=== PATIENT | female | born 1985 | race Caucasian/White ===

== ENCOUNTER 2025-02-13 18:19 | Emergency (ER) | payer MEDICAID ==
[~2025-02-13] VITALS: Ht 170.2 cm; Wt 77.6 kg
[2025-02-13 19:06] LABS: BILIRUBIN,URINE NEGATIVE (Neg); CLARITY,URINE CLOUDY (Clear); COLOR,URINE YELLOW (Yellow); GLUCOSE, URINE NEGATIVE (Neg); KETONES,URINE NEGATIVE (Neg); LEUKOCYTE ESTERASE ,URINE MODERATE (Neg); NITRITES, URINE NEGATIVE (Neg); OCCULT BLOOD,URINE TRACE-INTACT (Neg); PROTEIN,URINE TRACE mg/dl (Neg); UROBILINOGEN,URINE 0.2 E.U/dL (0.2-1.0)
[2025-02-13 19:07] LABS: URINE HCG NEGATIVE (NEG)
[2025-02-13 19:13] LABS: UA COLLECTION TYPE CLN CATCH MIDSTREAM
[2025-02-13 19:15] LABS: BACTERIA,URINE FEW /HPF (Neg); SQUAMOUS EPITHELIAL CELL,UR NONE SEEN /LPF (FEW); WBC,URINE TNTC /HPF (0-4)
--- NOTE | 2025-02-13 19:26 | Physician Documentation ---
History of Present Illness ~ General Chief Complaint: Multiple Medical Complaints Stated Complaint: UTI/ARMS ARE NUMB-CARPAL TUNNEL Time Seen by MD: 19:05 History of Present Illness Initial Comments This is a 59-year-old female presents with 3-4 days of dysuria and urinary frequency without abdominal pain or fever. Patient reports additionally that she has been having intermittent shooting pain in her hands and wrist pain for the last approximately one month. Patient reports no other acute symptoms or concerns. Medication Reconciliation Allergies: Coded Allergies: No Known Allergies (Unverified , 02/13/25) Scheduled Nitrofurantoin Monohyd/M-Cryst (Macrobid 100 mg Capsule), 1 CAP PO Q12H Past Medical History Past Medical History: No Pertinent History Review of Systems ROS Dysuria and intermittent hand tingling as stated above in the HPI, otherwise all systems are reviewed and negative. Physical Exam Physical Exam Vital Signs: Temperature: 97.9, Source: Oral, Heart Rate: 87, Respiratory Rate: 16, BP: 136/82, Pulse Oximetry: 99, Weight: 77.600 Oxygen Flow Rate: 0 Physical Exam VITALS: Reviewed and as above. GENERAL: Alert, nontoxic appearing, no apparent distress. RESPIRATORY: No increased work of breathing, no respiratory distress, speaking in full clear sentences CV: Regular rate and rhythm no murmur BACK: CVA tenderness GI: Nondistended, soft, nontender to palpation, no rebound, no guarding MUSCULOSKELETAL: Positive Phalen sign bilateral wrists otherwise nontender to palpation Progress Results/Orders Results/Orders Orders - IFTIKHAR EVANS Ortho Orders (02/13/25 ) Completed Orders - IFTIKHAR EVANS Nitrofurantoin Macrocryst Cap (Macrodant (02/13/25 19:30) Medications Received in ER Medications (Trade) Dose Ordered Sig/Grzegorz Route PRN Reason Start Time Stop Time Status Last Admin Dose Admin (MacroDANTIN capsule) 100 mg NOW ONCE PO 02/13/25 19:30 02/13/25 19:34 DC 02/13/25 19:48 100 MG Vital Signs 02/13/25 02/13/25 18:22 19:54 Temp 97.9 98.6 Pulse 87 84 Resp 16 18 B/P (MAP) 136/82 134/80 Pulse Ox 99 99 O2 Flow Rate 0 Laboratory Tests Test 02/13/25 18:27 Urine Specimen Description Cln catch midstream Urine Color Yellow Urine Clarity Cloudy Urine pH 6.0 Urine Specific [place] 1.025 Urine Protein Trace Urine Glucose (UA) Negative Urine Ketones Negative Urine Occult Blood Trace-intact Urine Nitrite Negative Urine Bilirubin Negative Urine Urobilinogen 0.2 Urine Leukocyte Esterase Moderate H Urine RBC 3-10 Urine WBC Tntc H Urine Squamous Epithelial Cells None seen Urine Bacteria Few Urine Culture Indicated Indicated Volume Urine Centrifuged 10 ml Urine HCG, Qualitative Negative Urine Comment Microbiology Date/Time Source Procedure Growth Status 02/13/25 19:16 Urine Clean Catch Midstream Urine Culture - Preliminary Culture received. Resulted Medical Decision Making Findings This 39-year-old male presented with three days of dysuria and urinary frequency without fever or abdominal pain, is reassuring patient did not have CVA tenderness. Urinalysis was consistent with UTI. Patient to be prescribed course of oral antibiotics for UTI. Patient had additional concern for intermittent pain and tingling in bilateral hands and fingers with positive Phalen test consistent with likely help a tunnel syndrome, as symptoms have been going on for some time patient has been instructed follow up with primary care provider for further evaluation and was placed in bilateral wrist splints for comfort until she can follow up with the primary care provider. Patient is othe rwise well-appearing with benign physical exam and stable vital signs and appropriate for outpatient follow up. Patient provided return to care precautions which he verbalized understanding of. Differential Diagnosis Fractures, dislocation, tendinitis, pyelonephritis, sepsis, urolithiasis, STI Departure Disposition: HOME / SELF CARE / HOMELESS Impression: Primary Impression: UTI (urinary tract infection) Qualified Codes: N30.00 - Acute cystitis without hematuria Condition: Improved Discharge Instructions: Carpal Tunnel Syndrome, [id number], Urinary Tract Infection, Adult, [id number] Additional Instructions: Please use the prescribed antibiotics for your urinary tract infection, your symptoms and your wrists is likely related to carpal tunnel syndrome you will need further evaluation by your primary care provider. Please follow up with your primary care provider in the next few days. Please return to the emergency department for any new or worsening concerning symptoms being by mouth limited to worsening urinary symptoms, if you develop a fever, or if you develop the pain in your back. Referrals: NO PRIMARY CARE PROVIDER (PCP) Prescriptions Nitrofurantoin Monohyd/M-Cryst (Macrobid 100 mg Capsule) 100 Mg Capsule 1 CAP PO Q12H for 5 Days, #10 CAP 0 Refills Prov: IFTIKHAR EVANS 02/13/25 Education Educated: Patient Educated regarding: diagnosis, treatment, prognosis, need for follow up Signature Scribe Signature: No scribe Attestation: The note accurately reflects work and decisions made by me.CLAUDIO Gan 02/14/25 00:54 IFTIKHAR EVANS [facility] Feb 13, 2025 19:26
[2025-02-13] MEDS ORDERED: NITR100C6 PO (19:30)
[2025-02-13] MEDS: nitrofurantoin macrocrystal 50mg capsule PO ONE (19:48)
[2025-02-13 19:54] VITALS: BP 134/80; PULSE 84; RESP 18; TEMP 98.6; O2SAT 99
== END 2025-02-13 19:55 | disposition home or self-care (01) ==
LOC: ER 18:20
DX: N39.0 Urinary tract infection, site not specified (principal)
CPT/HCPCS: 29125; 81001; 81025; 87088; 99283